=== PATIENT | male | born 1960 | race Caucasian/White ===

== ENCOUNTER 2018-01-05 12:19 | Emergency (ER) | payer BC ==
[2018-01-05] MEDS ORDERED: LIDOCAINE 2% W/ EPI MPF 20 ML SOL INFIL ONE (12:41)
[2018-01-05] MEDS ORDERED: LIDOCAINE 1% W/EPI MPF 30 ML SOL ONE (12:42)
[2018-01-05 12:53] VITALS: BP 150/84; PULSE 100; RESP 18; TEMP 99; O2SAT 97
== END 2018-01-05 14:02 | disposition home or self-care (01) ==
LOC: ED 12:19
DX: S01.01XA Laceration without foreign body of scalp, initial encounter (principal)
CPT/HCPCS: 12002; 99283; G0168; A6402; A6446